=== PATIENT | female | born 1980 | race Caucasian/White ===

== ENCOUNTER 2016-09-21 18:23 | Emergency (ER) | payer MEDICAID ==
[~2016-09-21] VITALS: Ht 167.6 cm; Wt 67.1 kg
[~2016-09-21 18:23] MED LIST: PNV1TABL47
[2016-09-21] MEDS ORDERED: SODIUM CHLORIDE 0.9% 1,000 ML IV ONE (18:39)
[2016-09-21] MEDS ORDERED: ONDANSETRON 2MG/ML, 2ML ONE (18:52)
[2016-09-21] MEDS ORDERED: MORPHINE SULFATE 4 MG/ML, 1ML ONE ×2 (18:52→20:47)
[2016-09-21] MEDS ORDERED: FAMOTIDINE 20 MG/2 ML ONE (18:58)
[2016-09-21] MEDS ORDERED: MAALOX/HYOSCYAMINE/LIDOCAINE 45 ML BTL ONE (18:58)
[2016-09-21] MEDS ORDERED: FAMOTIDINE 20 MG TABLET PO ONE (19:00)
[2016-09-21] MEDS ORDERED: MAALOX/HYOSCYAMINE/LIDOCAINE 45 ML BTL PO ONE (19:00)
[2016-09-21] MEDS ORDERED: MORPHINE SULFATE 4 MG/ML, 1ML IVPush PRN (19:00)
[2016-09-21] MEDS ORDERED: ONDANSETRON 2MG/ML, 2ML IVPush ONE (19:00)
[2016-09-21 19:04] LABS: HEMATOCRIT 34.8 % (34.6-47.8); HEMOGLOBIN 10.7 g/dL (11.7-16.4); WHITE BLOOD COUNT 8.4 x10^3/uL (3.4-10)
[2016-09-21 19:19] LABS: ASPARTATE AMINO TRANSFERASE 14 U/L (15-37); BLOOD UREA NITROGEN 5 mg/dL (7-18)
[2016-09-21] MEDS ORDERED: LORazepam 2 MG/ML, 1ML ONE (19:28)
[2016-09-21] MEDS ORDERED: LORazepam 2 MG/ML, 1ML IVPush ONE (20:00)
[2016-09-21] MEDS ORDERED: FAMOTIDINE 20 MG/2 ML IVPush ONE (20:00)
[2016-09-21 22:04] VITALS: BP 97/50
== END 2016-09-21 22:07 | disposition home or self-care (01) ==
LOC: ED 21:03
DX: K27.3 Acute peptic ulcer, site unspecified, without hemorrhage or perforation (principal); R10.13 Epigastric pain; R11.2 Nausea with vomiting, unspecified; R19.7 Diarrhea, unspecified
CPT/HCPCS: 36415; 74177; 80053; 81003; 85025; 96361; 96374; 96375; 99285; J2060; J2405; J7030; S0028

== ENCOUNTER 2018-03-01 17:17 | Observation (INO) | payer MEDICAID ==
[~2018-03-01] VITALS: Ht 167.6 cm; Wt 70.5 kg
[2018-03-01] MEDS ORDERED: ACETAMINOPHEN 325 MG TABLET ONE (18:30)
[2018-03-01 18:36] LABS: MICROSCOPIC INDICATED
[2018-03-01 18:47] LABS: AMPHETAMINE SCREEN, URINE Positive (Negative); BARBITURATE SCREEN, URINE Negative (Negative); BENZODIAZEPINE SCREEN, URINE Negative (Negative); CANNABINOID SCREEN, URINE Positive (Negative); COCAINE SCREEN, URINE Negative (Negative); METHADONE SCREEN, URINE Negative (Negative); OPIATE SCREEN, URINE Negative (Negative)
[2018-03-01 20:02] LABS: MEAN CORPUSCULAR HEMOGLOBIN 18.5 pg (27.0-34.8); MEAN CORPUSCULAR HGB CONC 30.8 g/dL (32.4-35.8); MEAN CORPUSCULAR VOLUME 60.1 fL (80-100); PLATELET COUNT 365 x10^3/uL (130-400); RED BLOOD COUNT 4.14 x10^6/uL (3.82-5.3); RED CELL DISTRIBUTION WIDTH 18.9 % (9.6-15.2)
[2018-03-01 20:04] LABS: MD YES
[2018-03-01 20:08] LABS: BASOS#(MANUAL) 0.27 x10^3/uL (0-0.1); BASOS% (MANUAL) 2 % (0-1); LYMPH#(MANUAL) 4.02 x10^3/uL (1-3.4); LYMPHS% (MANUAL) 30 % (22-44); METAMYELOCYTES# (MANUAL) 0.13 x10^3/uL (0-0); METAMYELOCYTES% (MANUAL) 1 % (0-1); MONOS% (MANUAL) 3 % (2-9); SEG#(MANUAL) 8.58 x10^3/uL (1.8-6.8); SEGS% (MANUAL) 64 % (42-75)
[2018-03-01 20:10] LABS: <PLATELET ESTIMATE> ADEQUATE; <PLT MORPHOLOGY> NORMAL PLT MORPH; ANISOCYTOSIS 2+; MICROCYTOSIS 2+; OVALOCYTES 1+; POLYCHROMASIA 1+; TOXIC GRAN 1+
[2018-03-01 21:59] LABS: % IRON SATURATION 2 % (20-55); IRON LEVEL 18 mcg/dL (50-170); TOTAL IRON BINDING CAPACITY 760 mcg/dL (250-450)
== END 2018-03-01 22:11 | disposition home or self-care (01) ==
LOC: LDOP 17:17 → LDIP 17:18 → LDOP 17:20
PROVIDERS: ADMIT Obstetrics & Gynecology; ATTEND Obstetrics & Gynecology
DX: O99.323 Drug use complicating pregnancy, third trimester (principal); F12.90 Cannabis use, unspecified, uncomplicated; Z3A.30 30 weeks gestation of pregnancy; W19.XXXA Unspecified fall, initial encounter; Y92.89 Other specified places as the place of occurrence of the external cause; Y93.89 Activity, other specified; Y99.8 Other external cause status
CPT/HCPCS: 36415; 59025; 76815; 80307; 81001; 83021; 83540; 83550; 84112; 85025; 85384; 85660; 86592; 86762; 86850; 86900; 87086; 87340; 87806; G0378; G0475

== ENCOUNTER 2018-03-26 19:31 | Inpatient (IN) | payer MEDICAID ==
[~2018-03-26] VITALS: Ht 167.6 cm; Wt 71.0 kg
[2018-03-26] MEDS ORDERED: MAGNESIUM SULF. PMX 20GM/500ML 500 ML IV ONE (20:14)
[2018-03-26] MEDS ORDERED: TERBUTALINE 1 MG/ML, 1ML ONE (20:14)
[2018-03-26] MEDS ORDERED: BETAMETHASONE 6 MG/ML, 5ML IM ONE (20:15)
[2018-03-26 20:17] LABS: AMPHETAMINE SCREEN, URINE Negative (Negative); BARBITURATE SCREEN, URINE Negative (Negative); BENZODIAZEPINE SCREEN, URINE Negative (Negative); CANNABINOID SCREEN, URINE Positive (Negative); COCAINE SCREEN, URINE Negative (Negative); METHADONE SCREEN, URINE Negative (Negative); OPIATE SCREEN, URINE Negative (Negative)
[2018-03-26] MEDS ORDERED: MAGNESIUM SULFATE PMX 4GM/100M 100 ML IVPB ONE (20:30)
[2018-03-26] MEDS ORDERED: TERBUTALINE 1 MG/ML, 1ML SQ PRN (20:30)
[2018-03-26 20:42] LABS: MICROSCOPIC INDICATED
[2018-03-26] MEDS: LACTATED RINGERS 1,000 ML IV SCH (20:55)
[2018-03-26] MEDS: MAGNESIUM SULF. PMX 20GM/500ML 500 ML IV SCH (20:56)
[2018-03-26] MEDS: BETAMETHASONE 6 MG/ML, 5ML IM SCH (21:00)
[2018-03-26 21:13] VITALS: BP 105/55
[2018-03-26] MEDS ORDERED: ONDANSETRON 2MG/ML, 2ML IVPush PRN (21:30)
[2018-03-26] MEDS ORDERED: ZOLPIDEM 5MG TABLET ONE (22:13)
[2018-03-26] MEDS: ZOLPIDEM 5MG TABLET PO SCH (22:14)
[2018-03-27] MEDS ORDERED: MAGNESIUM SULF. PMX 20GM/500ML 500 ML IV ONE (04:15)
[2018-03-27] MEDS: MAGNESIUM SULF. PMX 20GM/500ML 500 ML IV SCH (05:54)
[2018-03-27] MEDS: LACTATED RINGERS 1,000 ML IV SCH ×3 (05:57→21:57)
[2018-03-27] MEDS ORDERED: LACTATED RINGERS 1,000 ML IV PRN (07:02)
[2018-03-27] MEDS ORDERED: MAGNESIUM SULF. PMX 20GM/500ML 500 ML IV SCH (07:02)
[2018-03-27 08:09] VITALS: BP 117/67
[2018-03-27 08:19] LABS: ALANINE AMINOTRANSFERASE 12 U/L (12-78); ALBUMIN 2.6 g/dL (3.4-5.0); ANION GAP 10 mmol/L (5-15); CALCIUM 7.6 mg/dL (8.5-10.1); CHLORIDE 107 mmol/L (98-107); CREATININE 0.57 mg/dL (0.55-1.02)
[2018-03-27 08:22] LABS: ALKALINE PHOSPHATASE 197 U/L (45-117); BILIRUBIN,TOTAL 0.4 mg/dL (0.2-1.0); TOTAL PROTEIN 6.9 g/dL (6.4-8.2)
[2018-03-27 09:05] LABS: MEAN CORPUSCULAR HEMOGLOBIN 17.3 pg (27.0-34.8); MEAN CORPUSCULAR HGB CONC 29.7 g/dL (32.4-35.8); MEAN CORPUSCULAR VOLUME 58.2 fL (80-100); MEAN PLATELET VOLUME 7.6 fL (7.4-10.4); PLATELET COUNT 348 x10^3/uL (130-400); RED BLOOD COUNT 4.15 x10^6/uL (3.82-5.3); RED CELL DISTRIBUTION WIDTH 19.6 % (9.6-15.2)
[2018-03-27 09:25] LABS: MD YES
[2018-03-27 09:27] LABS: BAND#(MANUAL) 0.74 x10^3/uL; BANDS%(MANUAL) 4 % (0-7); LYMPH#(MANUAL) 1.49 x10^3/uL (1-3.4); LYMPHS% (MANUAL) 8 % (22-44); METAMYELOCYTES# (MANUAL) 0.19 x10^3/uL (0-0); METAMYELOCYTES% (MANUAL) 1 % (0-1); MONOS#(MANUAL) 0.19 x10^3/uL (0.3-2.7); MONOS% (MANUAL) 1 % (2-9); SEGS% (MANUAL) 86 % (42-75)
[2018-03-27 09:30] LABS: ANISOCYTOSIS 2+; MICROCYTOSIS 2+; OVALOCYTES 1+; POLYCHROMASIA 1+
[2018-03-27 09:31] LABS: <PLATELET ESTIMATE> ADEQUATE; <PLT MORPHOLOGY> NORMAL PLT MORPH
[2018-03-27] MEDS ORDERED: PRENATAL VIT/IRON/FA 1 EACH TABLET ONE (09:36)
[2018-03-27] MEDS ORDERED: DOCUSATE 100 MG CAPSULE ONE ×2 (09:37→20:58)
[2018-03-27] MEDS ORDERED: FERROUS SULFATE 325 MG TABLET ONE ×2 (09:37→20:59)
[2018-03-27] MEDS: FERROUS SULFATE 325 MG TABLET PO SCH ×2 (09:38→21:02)
[2018-03-27] MEDS: PRENATAL VIT/IRON/FA 1 EACH TABLET PO SCH (09:39)
[2018-03-27] MEDS: DOCUSATE 100 MG CAPSULE PO SCH ×2 (09:39→21:02)
[2018-03-27] MEDS ORDERED: ONDANSETRON 2MG/ML, 2ML ONE (10:32)
[2018-03-27] MEDS ORDERED: ACETAMINOPHEN 325 MG TABLET ONE ×3 (11:42→20:58)
[2018-03-27] MEDS: ACETAMINOPHEN 325 MG TABLET PO PRN ×3 (11:43→21:02)
[2018-03-27] MEDS ORDERED: ZOLPIDEM 5MG TABLET ONE (19:23)
[2018-03-27] MEDS: ZOLPIDEM 5MG TABLET PO SCH (19:25)
[2018-03-27 19:42] VITALS: BP 104/59
[2018-03-27] MEDS: BETAMETHASONE 6 MG/ML, 5ML IM SCH (21:03)
[2018-03-28] MEDS ORDERED: ACETAMINOPHEN 325 MG TABLET ONE ×2 (00:57→17:43)
[2018-03-28] MEDS: LACTATED RINGERS 1,000 ML IV SCH ×3 (05:57→21:57)
[2018-03-28] MEDS ORDERED: PRENATAL VIT/IRON/FA 1 EACH TABLET ONE (09:12)
[2018-03-28] MEDS ORDERED: DOCUSATE 100 MG CAPSULE ONE (09:12)
[2018-03-28] MEDS ORDERED: FERROUS SULFATE 325 MG TABLET ONE (09:13)
[2018-03-28] MEDS: PRENATAL VIT/IRON/FA 1 EACH TABLET PO SCH (09:16)
[2018-03-28] MEDS: DOCUSATE 100 MG CAPSULE PO SCH ×2 (09:16→21:00)
[2018-03-28] MEDS: FERROUS SULFATE 325 MG TABLET PO SCH ×2 (09:16→21:00)
[2018-03-28] MEDS: ACETAMINOPHEN 325 MG TABLET PO PRN (17:46)
[2018-03-28 18:28] LABS: CULTURE INDICATED? YES; MICROSCOPIC INDICATED
[2018-03-28] MEDS ORDERED: ZOLPIDEM 5MG TABLET ONE (21:03)
[2018-03-28] MEDS: ZOLPIDEM 5MG TABLET PO SCH (21:04)
[2018-03-29] MEDS: LACTATED RINGERS 1,000 ML IV SCH (05:57)
[2018-03-29 07:40] VITALS: BP 117/67
[2018-03-29] MEDS ORDERED: NIFE10CA49 PO (08:11)
[2018-03-29] MEDS ORDERED: DOCUSATE 100 MG CAPSULE ONE (08:19)
[2018-03-29] MEDS ORDERED: PRENATAL VIT/IRON/FA 1 EACH TABLET ONE (08:19)
[2018-03-29] MEDS ORDERED: FERROUS SULFATE 325 MG TABLET ONE (08:20)
[2018-03-29] MEDS: DOCUSATE 100 MG CAPSULE PO SCH (08:52)
[2018-03-29] MEDS: FERROUS SULFATE 325 MG TABLET PO SCH (08:52)
[2018-03-29] MEDS: PRENATAL VIT/IRON/FA 1 EACH TABLET PO SCH (08:52)
== END 2018-03-29 08:30 | disposition home or self-care (01) | DRG 832 ==
LOC: LDOP 19:31 → LDIP 20:15
PROVIDERS: ADMIT Obstetrics & Gynecology; ATTEND Obstetrics & Gynecology
DX: O60.03 Preterm labor without delivery, third trimester (principal); O99.323 Drug use complicating pregnancy, third trimester; O34.211 Maternal care for low transverse scar from previous cesarean delivery; F12.90 Cannabis use, unspecified, uncomplicated; Z3A.34 34 weeks gestation of pregnancy
CPT/HCPCS: 36415; 80053; 80307; 81001; 83735; 85025; 86850; 86900; 87081; 87086; 89060; G0378; J0702; J2405; J3105; J3475; J7120; Q0114

== ENCOUNTER 2018-04-02 13:50 | Outpatient (CLI) | payer MEDICAID ==
[~2018-04-02] VITALS: Ht 167.6 cm; Wt 71.8 kg
[~2018-04-02 13:50] MED LIST changes: +NIFE10CA49 PO
[2018-04-02 14:31] LABS: AMPHETAMINE SCREEN, URINE Negative (Negative); BARBITURATE SCREEN, URINE Negative (Negative); BENZODIAZEPINE SCREEN, URINE Negative (Negative); CANNABINOID SCREEN, URINE Positive (Negative); COCAINE SCREEN, URINE Negative (Negative); METHADONE SCREEN, URINE Negative (Negative); OPIATE SCREEN, URINE Negative (Negative)
[2018-04-02] MEDS ORDERED: ACETAMINOPHEN 325 MG TABLET PO STA (15:19)
[2018-04-02] MEDS ORDERED: ACETAMINOPHEN 325 MG TABLET ONE (15:24)
== END 2018-04-02 17:00 | disposition home or self-care (01) ==
LOC: LDOP 13:50
PROVIDERS: ATTEND Obstetrics & Gynecology
DX: O62.9 Abnormality of forces of labor, unspecified (principal); O09.523 Supervision of elderly multigravida, third trimester; Z3A.34 34 weeks gestation of pregnancy; Z98.890 Other specified postprocedural states
CPT/HCPCS: 59025; 80307; 99211; G0463

== ENCOUNTER 2018-04-07 11:24 | Outpatient (CLI) | payer MEDICAID ==
[~2018-04-07] VITALS: Ht 167.6 cm; Wt 72.7 kg
[2018-04-07 11:30] VITALS: BP 123/79
[2018-04-07 12:07] LABS: MICROSCOPIC INDICATED
[2018-04-07 12:51] LABS: AMPHETAMINE SCREEN, URINE Negative (Negative); BARBITURATE SCREEN, URINE Negative (Negative); BENZODIAZEPINE SCREEN, URINE Negative (Negative); CANNABINOID SCREEN, URINE Positive (Negative); COCAINE SCREEN, URINE Negative (Negative); METHADONE SCREEN, URINE Negative (Negative); OPIATE SCREEN, URINE Negative (Negative)
[2018-04-07] MEDS ORDERED: NITR100C56 PO (13:11)
== END 2018-04-07 13:58 | disposition home or self-care (01) ==
LOC: LDOP 11:24
PROVIDERS: ATTEND Obstetrics & Gynecology
DX: O42.913 Preterm premature rupture of membranes, unspecified as to length of time between rupture and onset of labor, third trimester (principal); Z3A.35 35 weeks gestation of pregnancy
CPT/HCPCS: 59025; 80307; 81001; 84112; 87086; 99211; G0463

== ENCOUNTER 2018-04-09 13:20 | Inpatient (IN) | payer MEDICAID ==
[~2018-04-09] VITALS: Ht 167.6 cm; Wt 72.7 kg
[~2018-04-09 13:20] MED LIST changes: +NITR100C56 PO
[2018-04-09] MEDS ORDERED: TERBUTALINE 1 MG/ML, 1ML ONE (13:44)
[2018-04-09 13:45] VITALS: BP 132/64
[2018-04-09] MEDS ORDERED: LACTATED RINGERS 1,000 ML IVBOLUS ONE ×2 (14:00→14:30)
[2018-04-09] MEDS ORDERED: METOCLOPRAMIDE 5 MG/ML, 2ML ONE (14:03)
[2018-04-09] MEDS ORDERED: SODIUM CITRATE/CITRIC ACID 30 ML UDC ONE (14:03)
[2018-04-09] MEDS ORDERED: NEWBORN KIT ONE (14:03)
[2018-04-09] MEDS ORDERED: OXYTOCIN 30U/ 0.9% NaCL 500ML 500 ML ONE (14:03)
[2018-04-09 14:24] LABS: BASOPHILS # (AUTO) 0.18 x10^3/uL (0-0.1); BASOPHILS % (AUTO) 1 % (0-1); EOSINOPHILS # (AUTO) 0.14 x10^3/uL (0-0.4); EOSINOPHILS % (AUTO) 1 % (1-7); LYMPHOCYTES # (AUTO) 2.64 x10^3/uL (1-3.4); LYMPHOCYTES % (AUTO) 14 % (22-44); MD NO; MEAN CORPUSCULAR HEMOGLOBIN 17.8 pg (27.0-34.8); MEAN CORPUSCULAR HGB CONC 30.1 g/dL (32.4-35.8); MEAN CORPUSCULAR VOLUME 58.9 fL (80-100); MEAN PLATELET VOLUME 7.1 fL (7.4-10.4); MONOCYTES % (AUTO) 5 % (2-9); NEUTROPHILS # (AUTO) 15.13 x10^3/uL (1.8-6.8); NEUTROPHILS % (AUTO) 80 % (42-75); PLATELET COUNT 384 x10^3/uL (130-400)
[2018-04-09 14:28] LABS: AMPHETAMINE SCREEN, URINE Negative (Negative); BARBITURATE SCREEN, URINE Negative (Negative); BENZODIAZEPINE SCREEN, URINE Negative (Negative); CANNABINOID SCREEN, URINE Positive (Negative); COCAINE SCREEN, URINE Negative (Negative); METHADONE SCREEN, URINE Negative (Negative); OPIATE SCREEN, URINE Negative (Negative)
[2018-04-09] MEDS ORDERED: TERBUTALINE 1 MG/ML, 1ML IV ONE (14:30)
[2018-04-09] MEDS ORDERED: SODIUM CITRATE/CITRIC ACID 30 ML UDC PO ONE (14:30)
[2018-04-09] MEDS ORDERED: METOCLOPRAMIDE 5 MG/ML, 2ML IVPush ONE (14:30)
[2018-04-09] MEDS ORDERED: morphine SULFATE/PF 0.5 MG/ML, 10ML ONE (14:49)
[2018-04-09] MEDS ORDERED: DEXAMETHASONE 4 MG/ML, 1ML ONE (14:51)
[2018-04-09] MEDS ORDERED: WATER-INJECTION,STERILE 10 ML IV ONE (14:51)
[2018-04-09] MEDS ORDERED: CEFAZOLIN 1,000 MG ONE (14:51)
[2018-04-09] MEDS ORDERED: ONDANSETRON 2MG/ML, 2ML ONE (14:51)
[2018-04-09] MEDS ORDERED: OXYTOCIN 10 UNITS/ML, 1ML ONE (14:51)
[2018-04-09] MEDS ORDERED: MIDAZOLAM 1 MG/ML, 2ML ONE (15:27)
[2018-04-09] MEDS ORDERED: SODIUM CHLORIDE 0.9% PF 10ML ONE (15:40)
[2018-04-09] MEDS ORDERED: PHENYLEPHRINE 10 MG/ML ONE (15:40)
[2018-04-09] MEDS ORDERED: KETOROLAC 30 MG/1 ML ONE (16:01)
[2018-04-09] MEDS: LACTATED RINGERS 1,000 ML IV SCH ×2 (16:25→16:53)
[2018-04-09] MEDS ORDERED: METHYLERGONOVINE 0.2 MG/ML IM PRN (16:30)
[2018-04-09] MEDS ORDERED: MISOPROSTOL 200 MCG TABLET SL PRN (16:30)
[2018-04-09] MEDS ORDERED: DIPH,PERTUSS(ACELL),TET VAC/PF NC IM-VACC PRN (16:30)
[2018-04-09] MEDS ORDERED: MORPHINE SULFATE 4 MG/ML, 1ML IVPush PRN (16:30)
[2018-04-09] MEDS ORDERED: CALCIUM CARBONATE 500 MG TAB.CHEW PO PRN (16:30)
[2018-04-09] MEDS ORDERED: OXYcodone IR 5MG TABLET PO PRN (16:30)
[2018-04-09] MEDS ORDERED: ACETAMINOPHEN 325 MG TABLET PO PRN (16:30)
[2018-04-09] MEDS ORDERED: METOCLOPRAMIDE 5 MG/ML, 2ML IV PRN (16:30)
[2018-04-09] MEDS ORDERED: ONDANSETRON 2MG/ML, 2ML IV PRN (16:30)
[2018-04-09] MEDS: OXYTOCIN 30U/ 0.9% NaCL 500ML 500 ML IV SCH (16:53)
[2018-04-09 18:10] VITALS: BP 118/74
[2018-04-09] MEDS ORDERED: NALOXONE 0.4 MG/ML, 1ML IVPush PRN (19:00)
[2018-04-09] MEDS ORDERED: morphine SULFATE 10 MG/ML, 1ML IVPush PRN (19:00)
[2018-04-09] MEDS ORDERED: OXYcodone/APAP 5/325MG TABLET PO PRN (19:00)
[2018-04-09] MEDS ORDERED: DO NOT GIVE XX SCH (19:00)
[2018-04-09] MEDS ORDERED: DIPHENHYDRAMINE 50 MG/ML, 1ML IVPush PRN (19:00)
[2018-04-09] MEDS ORDERED: KETOROLAC 30 MG/1 ML IVPush PRN (19:00)
[2018-04-09 19:45] VITALS: BP 113/76
[2018-04-09] MEDS: NITROFURANTOIN (MACROBID) 100 MG CAPSULE PO SCH (21:29)
[2018-04-09] MEDS: DOCUSATE 100 MG CAPSULE PO SCH (21:30)
[2018-04-09] MEDS: ONDANSETRON 2MG/ML, 2ML IVPush PRN (22:07)
[2018-04-09] MEDS: KETOROLAC 30 MG/1 ML IV SCH (22:07)
[2018-04-09 23:58] LABS: MEAN CORPUSCULAR HGB CONC 30.5 g/dL (32.4-35.8); MEAN CORPUSCULAR VOLUME 59.1 fL (80-100); MEAN PLATELET VOLUME 7.2 fL (7.4-10.4); PLATELET COUNT 289 x10^3/uL (130-400); RED BLOOD COUNT 3.54 x10^6/uL (3.82-5.3); RED CELL DISTRIBUTION WIDTH 22.4 % (9.6-15.2)
[2018-04-10] VITALS: BP 109/62
[2018-04-10] MEDS: LACTATED RINGERS 1,000 ML IV SCH ×4 (00:25→12:25)
[2018-04-10 00:31] LABS: BASOPHILS # (AUTO) 0.03 x10^3/uL (0-0.1); BASOPHILS % (AUTO) 0 % (0-1); EOSINOPHILS # (AUTO) 0.01 x10^3/uL (0-0.4); EOSINOPHILS % (AUTO) 0 % (1-7); LYMPHOCYTES # (AUTO) 1.41 x10^3/uL (1-3.4); LYMPHOCYTES % (AUTO) 7 % (22-44); MD SCAN; MONOCYTES # (AUTO) 0.63 x10^3/uL (0.2-0.8); MONOCYTES % (AUTO) 3 % (2-9); NEUTROPHILS # (AUTO) 18.34 x10^3/uL (1.8-6.8); NEUTROPHILS % (AUTO) 90 % (42-75)
[2018-04-10] MEDS: OXYcodone/APAP 5/325MG TABLET PO PRN ×3 (01:02→14:18)
[2018-04-10] MEDS: OXYTOCIN 30U/ 0.9% NaCL 500ML 500 ML IV SCH ×2 (02:25→12:25)
[2018-04-10] MEDS: KETOROLAC 30 MG/1 ML IV SCH ×3 (04:22→18:51)
[2018-04-10] MEDS: ONDANSETRON 2MG/ML, 2ML IVPush PRN (04:22)
[2018-04-10 04:30] VITALS: BP 99/63
[2018-04-10 07:22] VITALS: BP 108/71
[2018-04-10] MEDS: PRENATAL VIT/IRON/FA 1 EACH TABLET PO SCH (07:34)
[2018-04-10] MEDS: DOCUSATE 100 MG CAPSULE PO SCH ×2 (07:34→21:46)
[2018-04-10] MEDS: NITROFURANTOIN (MACROBID) 100 MG CAPSULE PO SCH ×2 (08:54→21:46)
[2018-04-10] MEDS: FERROUS GLUCONATE 324 MG TABLET PO SCH ×2 (08:54→17:03)
[2018-04-10] MEDS: SIMETHICONE 80 MG CHEW TAB PO PRN ×3 (12:10→20:09)
[2018-04-10 12:20] VITALS: BP 105/64
[2018-04-10 15:55] VITALS: BP 105/64
[2018-04-10 19:19] VITALS: BP 117/73
[2018-04-11] MEDS: OXYcodone IR 5MG TABLET PO PRN ×5 (00:58→18:44)
[2018-04-11] MEDS: IBUPROFEN 800 MG TABLET PO PRN ×3 (00:58→18:43)
[2018-04-11] MEDS: SIMETHICONE 80 MG CHEW TAB PO PRN ×2 (06:45→13:00)
[2018-04-11 08:00] VITALS: BP 110/69
[2018-04-11] MEDS: NITROFURANTOIN (MACROBID) 100 MG CAPSULE PO SCH ×2 (08:26→21:00)
[2018-04-11] MEDS: FERROUS GLUCONATE 324 MG TABLET PO SCH ×2 (08:27→17:00)
[2018-04-11] MEDS: PRENATAL VIT/IRON/FA 1 EACH TABLET PO SCH (09:00)
[2018-04-11] MEDS: DOCUSATE 100 MG CAPSULE PO SCH ×2 (09:00→21:14)
[2018-04-11 12:00] VITALS: BP 116/74
[2018-04-11] MEDS ORDERED: IBUPROFEN 800 MG TABLET PO PRN (16:30)
[2018-04-11 19:35] VITALS: BP 137/80
[2018-04-12] MEDS: SIMETHICONE 80 MG CHEW TAB PO PRN ×2 (00:32→10:30)
[2018-04-12] MEDS: OXYcodone IR 5MG TABLET PO PRN ×3 (00:32→10:26)
[2018-04-12] MEDS: IBUPROFEN 800 MG TABLET PO PRN (05:50)
[2018-04-12 07:15] VITALS: BP 125/74
[2018-04-12] MEDS: NITROFURANTOIN (MACROBID) 100 MG CAPSULE PO SCH (09:00)
[2018-04-12] MEDS: PRENATAL VIT/IRON/FA 1 EACH TABLET PO SCH (10:27)
[2018-04-12] MEDS: DOCUSATE 100 MG CAPSULE PO SCH (10:27)
[2018-04-12] MEDS: FERROUS GLUCONATE 324 MG TABLET PO SCH (10:27)
== END 2018-04-12 12:27 | disposition left against medical advice (07) | DRG 785 ==
LOC: LDOP 13:20 → LDIP 13:46 → 2NW 18:02
PROVIDERS: ADMIT Obstetrics & Gynecology; ATTEND Obstetrics & Gynecology
PROC: 10D00Z1 Extraction of Products of Conception, Low, Open Approach (ICD-10-PCS; principal; 2018-04-09)
PROC: 0UB70ZZ Excision of Bilateral Fallopian Tubes, Open Approach (ICD-10-PCS; 2018-04-09)
DX: O42.913 Preterm premature rupture of membranes, unspecified as to length of time between rupture and onset of labor, third trimester (principal); O34.211 Maternal care for low transverse scar from previous cesarean delivery; O76 Abnormality in fetal heart rate and rhythm complicating labor and delivery; O32.1XX0 Maternal care for breech presentation, not applicable or unspecified; O99.02 Anemia complicating childbirth; Z53.21 Procedure and treatment not carried out due to patient leaving prior to being seen by health care provider; D50.9 Iron deficiency anemia, unspecified; O99.334 Smoking (tobacco) complicating childbirth; Z3A.35 35 weeks gestation of pregnancy; Z37.0 Single live birth; Z30.2 Encounter for sterilization; Z72.0 Tobacco use; Z88.8 Allergy status to other drugs, medicaments and biological substances
CPT/HCPCS: 36415; 80307; 85025; 86850; 86900; 86923; 88302; G0378; J0690; J1100; J1885; J2250; J2274; J2405; J1200; J2270; J2370; J2590; J2765; J3105; J7120

== ENCOUNTER 2019-11-17 14:36 | Emergency (ER) | payer MEDICAID ==
[~2019-11-17] VITALS: Ht 167.6 cm; Wt 55.0 kg
[2019-11-17] MEDS ORDERED: SERT25TA PO (14:54)
--- NOTE | 2019-11-17 14:55 | NUR ---
BIB EMS FOR ETOH DETOX, ABD PAIN, NAUSEA AND VOMITING. LAST DRINK WAS LAST TUESDAY. PT IN BED WITH [employer], SPO2, BP Q 30 MIN, SIDE RAILS UP X2, CALL LIGHT IN REACH. MD MELENDEZ IN ROOM FOR EVAL.
[2019-11-17] MEDS ORDERED: SODIUM CHLORIDE 0.9% 1,000ML IVBOLUS ONE (15:00)
[2019-11-17] MEDS ORDERED: SODIUM CHLORIDE FLUSH 10ML SYR IVF ONE (15:00)
[2019-11-17] MEDS ORDERED: ONDANSETRON 2MG/ML, 2ML IVPush ONE (15:00)
[2019-11-17] MEDS ORDERED: FAMOTIDINE 20 MG/2 ML IV ONE (15:00)
[2019-11-17] MEDS ORDERED: FAMOTIDINE 20 MG/2 ML ONE (15:09)
[2019-11-17] MEDS ORDERED: ONDANSETRON 2MG/ML, 2ML ONE (15:09)
[2019-11-17 15:29] LABS: MEAN CORPUSCULAR HEMOGLOBIN 15.8 pg (27.0-34.8)
[2019-11-17 15:31] LABS: BASOPHILS % (AUTO) 1 % (0-1); EOSINOPHILS % (AUTO) 1 % (1-7); LYMPHOCYTES % (AUTO) 19 % (22-44); MEAN PLATELET VOLUME 8.4 fL (7.4-10.4); MONOCYTES % (AUTO) 6 % (2-9); NEUTROPHILS % (AUTO) 73 % (42-75); PLATELET COUNT 537 x10^3/uL (130-400); RED BLOOD COUNT 5.13 x10^6/uL (3.82-5.3); RED CELL DISTRIBUTION WIDTH 21.1 % (9.6-15.2)
[2019-11-17 15:37] LABS: ALANINE AMINOTRANSFERASE 32 U/L (12-78); ALBUMIN 3.8 g/dL (3.4-5.0); ANION GAP 6 mmol/L (5-15); CALCIUM 9.2 mg/dL (8.5-10.1); CHLORIDE 106 mmol/L (98-107); CREATININE 0.78 mg/dL (0.55-1.02)
[2019-11-17 15:39] LABS: ALKALINE PHOSPHATASE 47 U/L (45-117); BILIRUBIN,TOTAL 0.4 mg/dL (0.2-1.0); TOTAL PROTEIN 7.4 g/dL (6.4-8.2)
[2019-11-17 16:06] LABS: MEAN CORPUSCULAR HGB CONC 28.6 g/dL (32.4-35.8)
[2019-11-17 16:08] LABS: MD MORPH REVIEW ONLY
[2019-11-17 16:12] LABS: ANISOCYTOSIS 1+; HYPOCHROMIA 1+; MICROCYTOSIS 2+; POLYCHROMASIA 1+
[2019-11-17 16:13] LABS: <PLATELET ESTIMATE> INCREASED; <PLT MORPHOLOGY> NORMAL PLT MORPH; OVALOCYTES 1+
[2019-11-17] MEDS ORDERED: METOCLOPRAMIDE 5 MG/ML, 2ML ONE (16:48)
[2019-11-17] MEDS ORDERED: METOCLOPRAMIDE 5 MG/ML, 2ML IVPush ONE (17:00)
[2019-11-17 17:45] VITALS: BP 157/74
== END 2019-11-17 17:48 | disposition home or self-care (01) ==
LOC: ED 15:38
DX: F10.10 Alcohol abuse, uncomplicated (principal); R11.2 Nausea with vomiting, unspecified; R10.9 Unspecified abdominal pain; F17.200 Nicotine dependence, unspecified, uncomplicated; Y90.9 Presence of alcohol in blood, level not specified
CPT/HCPCS: 36415; 80053; 83690; 85025; 96361; 96374; 96375; 99284; J2405; J2765; J3490; J7030

== ENCOUNTER 2020-11-05 12:43 | Emergency (ER) | payer MEDICAID ==
[~2020-11-05] VITALS: Ht 160 cm; Wt 54.3 kg
[2020-11-05 16:08] VITALS: BP 99/54
== END 2020-11-05 16:12 | disposition home or self-care (01) ==
LOC: ED 14:45
DX: J12.9 Viral pneumonia, unspecified (principal); R07.89 Other chest pain; R94.31 Abnormal electrocardiogram [ECG] [EKG]; Z23 Encounter for immunization; Z87.11 Personal history of peptic ulcer disease; Z90.89 Acquired absence of other organs; Z88.5 Allergy status to narcotic agent
CPT/HCPCS: 0011A; 36415; 71045; 71260; 80053; 84484; 85025; 91301; 93005; 99285; Q9967